=== PATIENT | male | born 1990 | race African-American/Black ===

== ENCOUNTER 2025-09-21 12:23 | Emergency (ER) | payer MEDICAID ==
[~2025-09-21] VITALS: Ht 182.9 cm; Wt 81.4 kg
[~2025-09-21 12:23] MED LIST: CEPH-37 PO; METR500T PO; PRED20TA2 PO
--- NOTE | 2025-09-21 12:55 | ED.PDOC ---
History of Present Illness HPI Comments 35-year-old male presents to the ER with prior surgical history of cataract surgery of the left eye in the chief complaint of an eye problem. Patient reports on having headache and bilateral eye pain and pressure with the right eye being the worst for the past week associated with blurred vision. Patient s tates that he ran out of his eye drop medication on Saturday of 09/14/2025. The patient has been taking cyclopentolate hydrochloride solution, prednisolone has not take ophthalmic suspension RETIREMENT, dorzolamide hydrochloride/timolol maleate ophthalmic solution, brimonidine tartrate ophthalmic solution. Patient is notes that on recently being out of fdc. Denies any other symptoms at this time. Denies chills, fever, N/V/D, SOB, CP. No other associated symptoms, modifiers, recent injuries or sick contacts present at this time. Chief Complaint: Eye Problem Time Seen by MD: 12:45 Primary Care Provider: NONE Reviewed Notes: Nurses Notes, Medications, Allergies Allergies: Coded Allergies: NO KNOWN ALLERGIES (Unverified , 10/01/13) Home Meds Active Scripts Brimonidine Tartrate (ALPHAGAN P 0.15% OPTHALMIC) [address], 1 DROP EACHEYE BID, #10 ML 3 Refills Prov:EDIS ZEPEDA MD 09/21/25 Dorzolamide-Timolol (Dorzolamide Hcl/Timolol M) 1 Ml Dianne, 1 DROP EACHEYE BID, #10 ML 6 Refills Prov:EDIS ZEPEDA MD 09/21/25 Prednisolone Acetate (Ophth) (Pred Forte) 1 % Ami, 1 % OP DAILY for 20 Days, #5 ML Prov:EDIS ZEPEDA MD 09/21/25 Prednisone (Prednisone) 20 Mg Tab, 20 MG PO DAILY for 6 Days, #6 MG 0 Refills Prov:SHAWN HARGROVE MD 05/13/24 Metronidazole (Flagyl) 500 Mg Tab, 500 MG PO TID, #15 TAB Prov:DYLAN HERNANDEZ MD 03/18/15 Cephalexin (Keflex) 500 Mg Cap, 500 MG PO TID, #15 CAP Prov:DYLAN HERNANDEZ MD 03/18/15 Information Source: Patient Mode of Arrival: Ambulatory Severity: Moderate Timing: Days Duration: Since onset, Days Prehospital treatment: None Past Medical History PAST MEDICAL HISTORY: Denies Surgical History (Other): Cataract surgeon left eye Family History Family History: Reviewed,noncontributory to illness, Family hx of DM, Family hx of HTN Social History Smoker: Quit Greater Than 1 Year, Cigarettes Alcohol: Occasionally Drugs: Marijuana Lives In: Home Constitutional: denies: chills, diaphoresis, fatigue, fever, malaise, sweats, weakness, others EENTM: reports: blurred vision, ear pain (And pressure); denies: double vision, ear bleeding, ear discharge, ear drainage, ear ringing, eye pain, eye redness, hearing loss, mouth pain, mouth swelling, nasal discharge, nose bleeding, nose congestion, nose pain, photophobia, tearing, throat pain, throat swelling, voice changes, others Respiratory: denies: cough, hemoptysis, orthopnea, SOB at rest, shortness of br eath, SOB with excertion, stridor, wheezing, others Cardiovascular: denies: chest pain, dizzy spells, diaphoresis, Dyspnea on exertion, edema, irregular heart beat, left arm pain, lightheadedness, palpitations, PND, syncope, others Gastrointestinal: denies: abdomen distended, abdominal pain, blood streaked bowels, constipated, diarrhea, dysphagia, difficulty swallowing, hematemesis, melena, nausea, poor appetite, poor fluid intake, rectal bleeding, rectal pain, vomiting, others Genitourinary: denies: burning, dysuria, flank pain, frequency, hematuria, incontinence, penile discharge, penile sore, pain, testicle pain, testicle swelling, urgency, others Neurological: denies: dizziness, fainting, headache, left sided numbness, left sided weakness, numbness, paresthesia, pre-existing deficit, right sided numbness, right sided weakness, seizure, speech problems, tingling, tremors, weakness, others Musculoskeletal: denies: back pain, gout, joint pain, joint swelling, muscle pain, muscle stiffness, neck pain, others Integumetry: denies: bruises, change in color, change in hair/nails, dryness, laceration, lesions, lumps, rash, wounds, others Allergic/Immunocompromised: denies: Difficulty Healing, Frequent Infections, Hives, Itching, others Hematologic/Lymphatic: denies: anemia, blood clots, easy bleeding, easy bruising, swollen glands, others Endocrine: denies: excessive hunger, excessive sweating, excessive thirst, excessive urination, flushing, intolerance to cold, intolerance to heat, unexplained weight gain, unexplained weight loss, others Psychiatric: denies: anxiety, bipolar disorder, depression, hopeless, panic disorder, schizophrenia, sleepless, suicidal, others All Other Systems: Reviewed and Negative Physical Exam General Appearance: No Apparent Distress HEENT: Pharynx Normal, TMs Normal Neck: Full Range of Motion, Non-Tender, Normal, Normal Inspection Respiratory: Chest Non-Tender, Lungs Clear, No Accessory Muscle Use, No Resp iratory Distress, Normal Breath Sounds Cardiovascular: No Edema, No JVD, No Murmur, No Gallop, Normal Peripheral Pulses, Regular Rate/Rhythm Breast Exam: Deferred Gastrointestinal: No Organomegaly, Non Tender, No Pulsatile Mass, Normal Bowel Sounds, Soft Genitalia: Deferred Pelvic: Deferred Rectal: Deferred Extremities: No calf tenderness, Normal capillary refill, Normal inspection, Normal range of motion, Non-tender, No pedal edema Musculoskeletal : Apperance: Normal Neurologic: Alert, ground crewman aircraft support II-XII nml as Tested, No Motor Deficits, Normal Affect, Normal Mood, No Sensory Deficits Cerebellar Function: Normal Reflexes: Normal Skin: Dry, Normal Color, Warm Lymphatic: No Adenopathy Was a procedure done? Was a procedure done?: No Differential Dx Considerations may include: Medication refill, blurred vision X-Ray, Labs, Meds, VS Vital Signs Date Time Temp Pulse Resp B/P (MAP) Pulse Ox O2 Delivery O2 Flow Rate FiO2 09/21/25 12:25 98.2 67 16 133/86 99 98.2 The patient had his medication refill Time of 1ST Reevaluation: 13:15 Reevaluation 1ST: Unchanged Patient Education/Counseling: Diagnosis, Treatment, Prognosis, Need For Follow Up Family Education/Counseling: No Family Present SEPSIS Sepsis Screen Date sepsis recognized/suspect: Sep 21, 2025 Time Sepsis recognized/suspect: 1229 Recent Procedure: No On Antibiotic Therapy: No Respiratory Rate >20: No Heart Rate >90: No Temp<36 C (96.8 F) or >38.3 C: No SBP <90 or MAP <65 mmHG: No New Acute Mental Status Change: No Is the patient on CPAP, BIPAP,: No Vital Signs Date Time Temp Pulse Resp B/P (MAP) Pulse Ox O2 Delivery O2 Flow Rate FiO2 09/21/25 12:25 98.2 67 16 133/86 99 98.2 Departure 1 Departure Time of Disposition: 13:17 Impression: Primary Impression: Blurred vision Disposition: 01 HOME / SELF CARE / HOMELESS Condition: Fair e-Prescriptions Brimonidine Tartrate (ALPHAGAN P 0.15% OPTHALMIC) [address] 1 DROP EACHEYE BID, #10 ML 3 Refills Prov: EDIS ZEPEDA MD 09/21/25 Dorzolamide-Timolol (Dorzolamide Hcl/Timolol M) 1 Ml Dianne 1 DROP EACHEYE BID, #10 ML 6 Refills Prov: EDIS ZEPEDA MD 09/21/25 Prednisolone Acetate (Ophth) (Pred Forte) 1 % Ami 1 % OP DAILY for 20 Days, #5 ML Prov: EDIS ZEPEDA MD 09/21/25 Discharged With: Self Critical Care Note Critical Care Time?: No Stability Stability form required: No Heart Score Heart Score: Heart Score Response (Comments) Value History N/A 0 EKG N/A 0 Age N/A 0 Risk Factors N/A 0 Troponin N/A 0 Total 0 I personally scribed for EDIS ZEPEDA MD ([email or web address]) on 09/21/25 at 12:55. Electronically submitted by Preet Smith ([email or web address]). EDIS ZEPEDA MD Sep 21, 2025 12:55
[2025-09-21] MEDS ORDERED: DORZ2SOL18 EACHEYE (12:57)
[2025-09-21] MEDS ORDERED: PRED1SUS4 OP (12:57)
[2025-09-21] MEDS ORDERED: ALP15OS EACHEYE (12:57)
[2025-09-21 13:45] VITALS: BP 132/100; PULSE 88; RESP 18; TEMP 97.5; O2SAT 97
[2025-09-21] MEDS ORDERED: ACET1CAP14 PO (13:47)
== END 2025-09-21 13:53 | disposition home or self-care (01) ==
LOC: ER 12:23
DX: H53.8 Other visual disturbances (principal); Z79.899 Other long term (current) drug therapy